=== PATIENT | male | born 1975 ===

== ENCOUNTER 2025-01-05 13:55 | Outpatient (CLI) | payer OTHER | END 2025-01-05 14:00 | disposition home or self-care (01) | LOC: SONOGRAMA 13:55 | PROVIDERS: ATTEND General Practice | DX: M19.021 Primary osteoarthritis, right elbow (principal); M25.521 Pain in right elbow; Z11.3 Encounter for screening for infections with a predominantly sexual mode of transmission; Z12.11 Encounter for screening for malignant neoplasm of colon; Z13.21 Encounter for screening for nutritional disorder; Z13.0 Encounter for screening for diseases of the blood and blood-forming organs and certain disorders involving the immune mechanism; Z13.1 Encounter for screening for diabetes mellitus; Z13.220 Encounter for screening for lipoid disorders; Z13.29 Encounter for screening for other suspected endocrine disorder; Z12.5 Encounter for screening for malignant neoplasm of prostate; N39.0 Urinary tract infection, site not specified ==